=== PATIENT | male | born 1965 | race Caucasian/White ===

== ENCOUNTER 2018-02-08 13:02 | Observation (INO) | payer MEDICAID, SELFPAY ==
[2018-02-08 13:11] VITALS: BP 132/77; PULSE 83; RESP 16; TEMP 36.9; O2SAT 95
[2018-02-08] MEDS: Diazepam 5 MG TAB ×2 (13:31→20:18)
[2018-02-08] MEDS: oxyCODONE 5 MG TAB 10 MG (13:31)
--- NOTE | 2018-02-08 13:33 | DI.RAD_ITS ---
SYMPTOMS/DIAGNOSIS: S/P FALL AND HIT LADDER PA AND LATERAL CHEST AND RIGHT RIBS: Rib films show multiple right rib fractures, please see accompanying CT report, which showed fractures of ribs III-X. No gross pneumothorax identified radiographically, although a tiny hemopneumothorax was identified on CT. No significant additional findings.
--- NOTE | 2018-02-08 13:34 | W.ED.GENAD ---
Discharge Plan Disposition Patient Disposition: [facility] INPATIENT Condition: Stable Discharge Details Chief Complaint: Nk/Back Pain Clinical Impression: Multiple fractures of ribs of right side, Pneumothorax on right, Right pulmonary contusion Reason For Visit: MULTIPLE RIB FRACTURES, SMALL PNEUMOTHORAX, PULMON Admit Date/Time: 02/08/18 17:57 Admit Provider: Maine Pardo Attending Provider: Maine Pardo Primary Care Provider: Farhana Madden ED Provider: Jeanette Fleming Discharge Data Discharge Date/Time-TO BE ENTERED AT DEPARTURE: 02/08/18 18:23 Medical Decision Making 52yo M w/ R sided back pain after slip while working on a roof at home. Initially denied any blunt injury after asked multiple times but then after repeated questioning due to appearance of significant pain, he admitted to hitting his R back on a ladder. Denies head injury, LOC. Vital signs within normal limits. Pt appears very uncomfortable. Tenderness to palpation R side of back from upper to lower mid posterolateral back. No evidence of trauma. No midline C/T/L spine tenderness. Breath sounds equal and clear. Abdomen soft and nontender. No focal deficits. 1515 -- R ribs xray notes displaced fourth fifth sixth seventh eighth and ninth rib fractures. Report noted displaced left second and third rib fractures but this was a typo per vrad and the fractures were all on the right. Will send for CT chest w/o for further eval. 1600 --CT chest notes nondisplaced third, fifth, eighth, ninth, 10th and nondisplaced 6 and seventh rib fractures. Very small pneumothorax as well as mild opacities right lower lobe consistent with likely contusion. 1615 -- D/w [facility] trauma Dr. Contreras - accepts pt for transfer to ED. 1630 -- Pt does not want to go to [facility] - is concerned about cost of ambulance. D/w care management and they states medicaid would likely cover cost. Pt would prefer admission here if possible. 1645 -- D/w Dr. Pardo - accepts for admission here if CT chest/abd/pelvis with IV contrast negative for acute vascular/abdominal injury. 1730 --CT chest abdomen pelvis negative for any other acute injury other than multiple rib fractures noted. Dr. Pardo notified of findings and accepts patient for admission. EKG notes a rate of 99, sinus, no acute ST elevation or depression, QTc 441, QRS 100. Patient denied a history of diabetes. Labs reviewed and note a glucose of 276, white blood cell count 15, magnesium 1.7. Troponin negative. HPI General Mode of arrival: ambulatory. Date/Time Provider Initiated Documentation: 02/08/18 13:20. Limitations to Documentation: no limitations. Information obtained by: patient. HPI Narrative: Patient is a 52-year-old male who presents with right-sided back pain after slipped while working on a roof. Patient states he did not hit anything directly with his back and that he just slipped. Patient denies head injury, neck pain, chest pain or abdominal pain. Patient states he was able to walk down off of the roof and get into the car to come here. He denies shortness of breath. He took ibuprofen prior to arrival without relief. Past medical history: None Surgical history: Thumb surgery Social history: Occasional alcohol, denies tobacco or drugs Medications: None Allergies: None PCP: [facility] Related Data Home Medications Medication Instructions Recorded Confirmed epinephrine 0.3 mg IM ONCE #1 pen 03/26/17 02/08/18 sildenafil [Viagra] 25 mg PO DAILY #30 tab-cap 03/26/17 02/08/18 Previous Rx's Medication Instructions Recorded epinephrine 0.3 mg IM ONCE #1 pen 03/26/17 sildenafil [Viagra] 25 mg PO DAILY #30 tab-cap 03/26/17 Allergies Allergy/AdvReac Type Severity Reaction Status Date / Time venom-honey bee Allergy Intermediate Unverified 02/08/18 13:13 General Stated Complaint: Nk/Back Pain DORON: 3 Review of Systems Review of Systems All systems reviewed & are unremarkable except as noted in HPI and below PFSH Family History Mother Diabetes Heart disease Hyperlipidemia Father Neoplasm Brother No problems noted. Brother No problems noted. Brother No problems noted. Grandfather Heart disease Grandfather Heart disease Neoplasm Grandmother Heart disease Grandmother No problems noted. Daughter No problems noted. 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 pets and animals: No frequency: 1-2 times per week duration: 45-60 minutes/day Smoking/Tobacco Use Status: Never alcohol intake: current alcohol intake frequency: 0-2 drinks per day substance use type: does not use adalberto/anabaptist: Jehovah'S Witness special adalberto needs: No seatbelt use: always Surgical History Colonoscopy - IV Sedation (06/14/16) Exam Const General: cooperative, healthy appearing and uncomfortable Orientation: alert, awake and oriented x3 HENMT Head: normal to inspection Ears: hearing grossly normal bilaterally and external ears normal General nose exam: external nose normal Face and sinus: normal facial exam Mouth: oral mucosae normal Eyes General: appearance normal, both eyes and all related structures Eyelids: eyelids normal EOM: EOM intact bilaterally Neck Neck: normal visual inspection Chest Chest: normal inspection of the chest and tenderness (R lateral, no evidence of trauma ) Resp Effort & Inspection: normal respiratory effort and able to speak in complete sentences Auscultation: clear to auscultation bilaterally Cardio Rate: regular rate Rhythm: regular rhythm GI Inspection: normal to inspection Palpation: soft, not firm, no guarding, no hepatosplenomegaly, no masses and nontender Auscultation: normal bowel sounds Back/Spine/Pelvis Cervical Spine: cervical ROM normal, No cervical muscular tenderness and No cervical spinal tenderness Thoracic/Lumbar Spine: paraspinal tenderness, thoracic spinal tenderness and No lumbar spinal tenderness Skin General skin exam: no rashes or lesions noted Neuro General: alert and awake Cognition: normal cognition Speech: speech normal Gait: normal gait Motor: muscle tone normal throughout and strength 5/5 throughout Sensory Exam: no sensory deficits noted DTR's: Rt Patellar: 1+, Lt Patellar: 1+, Rt Ankle: 1+ and Lt Ankle: 1+ Plantar Reflexes: Equivocal: bilateral Extrem General: normal to inspection, full ROM and normal capillary refill Psych Appearance: grossly normal Mental Status: mental status grossly normal Speech and Movement: speech and movement normal Affect: normal affect Thought Process: normal Course Vital Signs Temperature 98.4 F 02/08/18 13:11 Pulse 83 02/08/18 13:11 Respiratory Rate 16 02/08/18 13:11 Blood Pressure 132/77 02/08/18 13:11 Pulse Oximetry 95 02/08/18 13:11 Temperature 98.4 F 02/08/18 13:11 Temperature Source Temporal Artery Scan 02/08/18 13:11 Pulse 83 02/08/18 13:11 Respiratory Rate 16 02/08/18 13:11 Respiratory Effort Non-Labored 02/08/18 13:13 Blood Pressure 132/77 02/08/18 13:11 Blood Pressure Position Sitting 02/08/18 13:11 Pulse Oximetry 95 02/08/18 13:11 Oxygen Delivery Method Room Air 02/08/18 13:11 Oxygen Flow Rate 0 02/08/18 13:11 Pain Level 10 02/08/18 13:31
[2018-02-08] MEDS: HYDROmorphone 2 MG/ML VIAL 1 MG IM (15:00)
--- NOTE | 2018-02-08 15:13 | DI.VRAD_ITS ---
EXAM: XR Right Ribs, 2 Views EXAM DATE/TIME: 02/08/2018 1:34 PM CLINICAL HISTORY: 52 years old, male; Injury or trauma; Fall; Initial encounter; Blunt trauma (contusions or hematomas); Rib area; Injury details: Per PT: Fell off roof onto ladder; Patient HX: Pain posterior right ribs, close to tspine TECHNIQUE: XR Right ribs 2 views. COMPARISON: No relevant prior studies available. FINDINGS: Bones/joints: Displaced fourth and fifth and sixth rib fractures. Less displaced left second and third rib fractures. There may be displaced seventh and eighth and ninth rib fractures as well.. Soft tissues: Normal. IMPRESSION: Displaced fourth and fifth and sixth rib fractures. Less displaced left second and third rib fractures. There may be displaced seventh and eighth and ninth rib fractures as well.. EXAM: XR Chest, 2 Views EXAM DATE/TIME: 02/08/2018 1:34 PM CLINICAL HISTORY: 52 years old, male; Injury or trauma; Fall; Initial encounter; Blunt trauma (contusions or hematomas); Rib area; Injury details: Per PT: Fell off roof onto ladder; Patient HX: Pain posterior right ribs, close to tspine TECHNIQUE: XR of the chest, 2 views. COMPARISON: No relevant prior studies available. FINDINGS: Lungs: Opacities in the left base may represent contusion. Pleural space: Unremarkable. No pleural effusion. No pneumothorax. Heart/Mediastinum: Unremarkable. No cardiomegaly. Bones/joints: Degenerative changes in the thoracic spine. Midthoracic compression fractures of unknown age. Rib fractures as described above Degenerative changes in the thoracolumbar spine IMPRESSION: Opacities in the left base may represent contusion. Dictated and Authenticated by: Raúl Joseph MD. Ordering:DENIZ SAMPSON MD
--- NOTE | 2018-02-08 15:36 | DI.CT_ITS ---
SYMPTOMS/DIAGNOSIS: S/P FALL AND HIT LADDER, ASSESS MULTIPLE RIB FRACTURES CHEST CT: CT examination was performed without contrast administration. This limits evaluation of vascular structures. There is marked subcutaneous emphysema in the right posterolateral thoracic region associated with rib fractures III-X with multiple displaced fragments. No gross mediastinal hematoma seen. Small pulmonary contusion may be present in the right lower and posterior lung field. A tiny right-sided pneumothorax noted. Small right pleural effusion/ hemothorax noted. CONCLUSION: Right thoracic injury as described above. Multiple rib fractures with small pneumothorax and small hemothorax. CHEST, ABDOMEN AND PELVIS CT: Contrast enhanced CT examination of the chest, abdomen and pelvis was performed with an intravenous infusion of 100 cc of Omnipaque 350. Contrast enhanced chest CT again shows multiple right rib fractures as noted on the noncontrast examination including fractures of the 3rd through 10th ribs with small associated right pneumothorax and hemothorax. Tracheobronchial tree appears intact. No left-sided injury seen. Minimal right basilar contusion and/or atelectasis may be present. No vascular injury seen. No mediastinal hematoma. Note is made of hepatic steatosis. Liver otherwise unremarkable in appearance, as is the spleen. Gallbladder, bile ducts and pancreas appear normal. No evidence of acute renal or adrenal injury. No vascular injury identified on scanning of the abdomen or pelvis. No significant abdominal wall injury or hernia. No abdominal, pelvic or thoracic adenopathy. No bowel injury or obstruction. CONCLUSION: Previously described multiple right rib fractures with small associated hemopneumothorax again noted. No additional findings.
--- NOTE | 2018-02-08 16:17 | DI.VRAD_ITS ---
EXAM: CT Chest Without Intravenous Contrast EXAM DATE/TIME: 02/08/2018 3:37 PM CLINICAL HISTORY: 52 years old, male; Injury or trauma; Fall; Initial encounter; Blunt trauma (contusions or hematomas); Injury details: Fell from roof onto ladder TECHNIQUE: Axial computed tomography images of the chest without intravenous contrast. Coronal and sagittal reformatted images were created and reviewed. COMPARISON: CR XR ribs RT w PA lat chest 02/08/2018 2:27 PM FINDINGS: Lungs: Mild opacities in the right lower lobe may represent atelectasis or contusion.. Pleural space: Very small pneumothorax anteriorly on the right 12 mm in width. Small pleural effusion.. Heart: Normal. No cardiomegaly. No pericardial effusion. Aorta: Normal. No aortic aneurysm. Lymph nodes: Unremarkable. No enlarged lymph nodes. Bones/joints: Right rib fractures: Displaced third, displaced fifth, nondisplaced sixth, essentially nondisplaced seventh, displaced 8, displaced ninth, and minimally displaced 10th. Soft tissues: Subcutaneous emphysema in the soft tissues posterior to the displaced 8 and ninth rib fractures. IMPRESSION: 1. Right rib fractures: Displaced third, displaced fifth, nondisplaced sixth, essentially nondisplaced seventh, displaced 8, displaced ninth, and minimally displaced 10th. 2. Very small pneumothorax anteriorly on the right 12 mm in width. 3. Small pleural effusion.. 4. Mild opacities in the right lower lobe may represent atelectasis or contusion.. Dictated and Authenticated by: Raúl Joseph MD. Ordering:DENIZ SAMPSON MD
[2018-02-08] MEDS: HYDROmorphone 2 MG/ML VIAL 1 MG IVP (16:46)
[2018-02-08] MEDS: Omnipaque 350 MG/ML 100 ML BTL IJ (17:13)
[2018-02-08] MEDS: Omnipaque 350 MG/ML 50 ML BTL IJ (17:14)
[2018-02-08 17:16] LABS: Abs Immature Grans 0.05 k/cumm (0.0-0.09); Absolute Basophil Count 0.02 k/cumm (0.0-0.2); Absolute Eosinophil Count 0.02 k/cumm (0.0-0.7); Absolute Lymphocyte Count 0.74 k/cumm (1.2-3.4); Absolute Monocyte Count 1.03 k/cumm (0.11-0.7); Absolute Neutrophil Count 13.58 k/cumm (1.2-6.7); Basophils % 0.1; Eosinophils % 0.1; HCT 43.7 % (40.0-50.0); HGB 15.1 g/dL (13.5-17.5); Immature Grans % 0.3; Lymphocytes % 4.8; Mean Corp. HGB Concentration 34.6 g/dL (32.0-36.0); Mean Corpuscular Hemoglobin 32.2 pg (27.0-33.0); Mean Corpuscular Volume 93.2 fL (80-95); Mean Platelet Volume 10.3 fL (8.0-11.0); Monocytes % 6.7; Platelet Count 153 x1000/uL (130-400); RBC 4.69 m/cumm (4.50-6.00); RBC Distribution Width 12.7 % (11.8-14.1); White Blood Cell Count 15.43 k/cumm (4.4-10.8)
--- NOTE | 2018-02-08 17:32 | DI.VRAD_ITS ---
EXAM: CT Chest With Intravenous Contrast EXAM DATE/TIME: 02/08/2018 4:51 PM CLINICAL HISTORY: 52 years old, male; Injury or trauma; Fall; Initial encounter; Blunt; Generalized; Blunt trauma (contusions or hematomas); Injury details: S/P fall from roof on to ladder; Additional info: R/O acute fracture/intra-abdominal injury TECHNIQUE: Axial computed tomography images of the chest with intravenous contrast. Coronal and sagittal reformatted images were created and reviewed. COMPARISON: No relevant prior studies available. FINDINGS: Lungs: Mild opacities in the right lower lobe may represent atelectasis or contusion. Pleural space: Very small pneumothorax anteriorly on the right 12 mm in width. Small pleural effusion.. Heart: Coronary artery calcifications may indicate coronary artery disease Aorta: Normal. No aortic aneurysm. Lymph nodes: Unremarkable. No enlarged lymph nodes. Bones/joints: Right rib fractures: Displaced third, displaced fifth, nondisplaced sixth, essentially nondisplaced seventh, displaced 8, displaced ninth, and minimally displaced 10th. Soft tissues: Subcutaneous emphysema in the soft tissues posterior to the displaced 8 and ninth rib fractures. IMPRESSION: 1. Mild opacities in the right lower lobe may represent atelectasis or contusion. . 2. Very small pneumothorax anteriorly on the right 12 mm in width. 3. Right rib fractures: Displaced third, displaced fifth, nondisplaced sixth, essentially nondisplaced seventh, displaced 8, displaced ninth, and minimally displaced 10th. 4. Subcutaneous emphysema in the soft tissues posterior to the displaced 8 and ninth rib fractures. EXAM: CT Abdomen and Pelvis With Intravenous Contrast EXAM DATE/TIME: 02/08/2018 4:51 PM CLINICAL HISTORY: 52 years old, male; Injury or trauma; Fall; Initial encounter; Blunt; Generalized; Blunt trauma (contusions or hematomas); Injury details: S/P fall from roof on to ladder; Additional info: R/O acute fracture/intra-abdominal injury TECHNIQUE: Axial computed tomography images of the abdomen and pelvis with intravenous contrast. Coronal and sagittal reformatted images were created and reviewed. COMPARISON: No relevant prior studies available. FINDINGS: Lower thorax: See report for CT chest ABDOMEN: Liver: Normal. No mass. Gallbladder and bile ducts: Normal. No calcified stones. No ductal dilation. Pancreas: Normal. No ductal dilation. Spleen: Normal. No splenomegaly. Adrenals: Normal. No mass. Kidneys and ureters: Normal. No hydronephrosis. Stomach and bowel: Normal. No obstruction. No mucosal thickening. Appendix: Normal appendix PELVIS: Bladder: Unremarkable as visualized. Reproductive: Unremarkable as visualized. ABDOMEN and PELVIS: Intraperitoneal space: Normal. No free air. No significant fluid collection. Bones/joints: No acute fracture. No dislocation. Soft tissues: Unremarkable. Vasculature: Normal. No abdominal aortic aneurysm. Lymph nodes: Normal. No enlarged lymph nodes. IMPRESSION: No evidence of acute trauma THIS REPORT CONTAINS FINDINGS THAT MAY BE CRITICAL TO PATIENT CARE. The findings were verbally communicated via telephone conference with kehinde carrasco at 5:31 PM EDT on 02/08/2018. The findings were acknowledged and understood. Dictated and Authenticated by: Raúl Joseph MD. Ordering:DENIZ SAMPSON MD
[2018-02-08 17:41] LABS: ALT 70 U/L (12-78); AST 68 U/L (15-37); Albumin 3.7 g/dL (3.4-5.0); Alkaline Phosphatase 74 U/L (46-116); Anion Gap 12.1 mmol/L (3-11); BUN 18 mg/dL (7-18); Bilirubin, Direct 0.05 mg/dL (0.00-0.20); Bilirubin, Total 0.3 mg/dL (0.2-1.0); CO2 23.9 mmol/L (21.0-32.0); CREATININE 1.14 mg/dL (0.70-1.30); Calcium 8.7 mg/dL (8.5-10.1); Chloride 103 mmol/L (98-107); Glucose 276 mg/dL (70-100); Magnesium 1.7 mg/dL (1.8-2.4); Potassium 4.3 mmol/L (3.5-5.1); Sodium 139 mmol/L (136-145); Total Protein 6.9 g/dL (6.4-8.2); Troponin I < 0.02 ng/mL (0.00-0.06)
[2018-02-08] MEDS: Ketorolac 30 MG/ML VIAL IVP ×2 (18:16→22:03)
[2018-02-08 18:26] VITALS: BP 119/75; PULSE 88; RESP 20; TEMP 36.1; O2SAT 96
[2018-02-08] MEDS: HYDROmorphone 2 MG/ML VIAL IVP (20:17)
[2018-02-08] MEDS: Acetaminophen 500 MG TAB 1000 MG PO (20:18)
[2018-02-08] MEDS: Cyclobenzaprine 10 MG TAB PO (20:18)
[2018-02-08] MEDS: MAGNESIUM SULFATE 2 GM/50 ML BAG IVPB (20:19)
[2018-02-08 22:38] LABS: Bilirubin Negative (Negative); Blood Negative (Negative); Clarity Clear; Glucose >=1000 mg/dL (Negative); Ketones Trace mg/dL (Negative); Leukocyte Esterase Negative (Negative); Nitrite Negative (Negative); Urobilinogen 0.2 EU/dL (Up TO 0.2); pH 5.5 (5-8)
[2018-02-08] MEDS: Normal Saline Flush 10 ML SYR IVP (23:44)
[2018-02-08 23:47] VITALS: BP 115/70; PULSE 57; RESP 18; TEMP 36.8; O2SAT 98
[2018-02-09] MEDS: Ketorolac 30 MG/ML VIAL IVP ×4 (04:20→22:30)
[2018-02-09] MEDS: HYDROmorphone 2 MG/ML VIAL IVP ×2 (04:35→07:26)
--- NOTE | 2018-02-09 07:00 | DI.RAD_ITS ---
SYMPTOM/DIAGNOSIS: F/U PNEUMOTHORAX PA AND LATERAL CHEST: Multiple right rib fractures are again noted. Tiny right apical pneumothorax noted. Some volume loss noted in the right lung. The findings suggest slightly increased atelectasis in comparison with yesterday's chest film.
--- NOTE | 2018-02-09 07:15 | HPE_ITS ---
Date of service: 02/09/18 Time of Service: 06:45 Assessment and Plan (1) Ribs, multiple fractures: Current visit: Yes Status: Acute Multiple rib fractures after an 8 feet fall from a roof. Doing reasonably well overnight. Pain is reasonable. Discussed diagnoses and risk of pneumonia P\\ Start Oxycodon for pain Regular diet Ambulate TID (2) Pneumothorax on right: Current visit: Yes Status: Acute A\\ Small pneumothorax on CT scan CXR pending this morning P\\ Await results of CXR History of Present Illness Chief Complaint: Rib Fractures Narrative: Mr. Perry is a pleasant 52 year old male who was working on a roof yesterday and lost his footing falling about 8 feet. He denies LOC and states he thinks he hit his right chest/back on a ladder as he fell. He came to the ER thinking he had just pulled some back muscles. CT of [facility], ABDO/Pelvis was positive only for 6 rib fractures on the right. 3 of the rib fractures are displaced and 3 are not. He also had a very small pneumothorax on the right and pulmonary contusions. He is a diabetic but states he is diet controlled at this time. Review of Systems Constitutional Reports system reviewed and no additional complaints, except as docu Eyes Reports system reviewed and no additional complaints, except as docu Cardiovascular Denies chest pain at rest, Denies chest pain with activity, Denies rapid heart rate and Denies irregular heart rhythm Respiratory Reports as per HPI Gastrointestinal Reports system reviewed and no additional complaints, except as docu Genitourinary Reports system reviewed and no additional complaints, except as docu Endocrine Reports system reviewed and no additional complaints, except as docu Hematologic/Lymphatic Denies easy bleeding, Denies easy bruising and Denies lymphadenopathy [facility] Family History Mother Diabetes Heart disease Hyperlipidemia Father Neoplasm Brother No problems noted. Brother No problems noted. Brother No problems noted. Grandfather Heart disease Grandfather Heart disease Neoplasm Grandmother Heart disease Grandmother No problems noted. Daughter No problems noted. 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 pets and animals: No frequency: 1-2 times per week duration: 45-60 minutes/day Smoking/Tobacco Use Status: Never alcohol intake: current alcohol intake frequency: 0-2 drinks per day substance use type: does not use adalberto/christianity: Pentecostalism special adalberto needs: No seatbelt use: always Surgical History Colonoscopy - IV Sedation (06/14/16) Meds Home Medications Medication Instructions Recorded Confirmed Type epinephrine 0.3 mg IM ONCE #1 pen 03/26/17 02/08/18 Rx sildenafil [Viagra] 25 mg PO DAILY #30 tab-cap 03/26/17 02/08/18 Rx Allergies Allergy/AdvReac Type Severity Reaction Status Date / Time venom-honey bee Allergy Intermediate Unverified 02/08/18 13:13 Exam Const General: cooperative, comfortable and no acute distress HENMT Head: normal to inspection, normocephalic and atraumatic Resp Effort & Inspection: normal respiratory effort Auscultation: clear to auscultation bilaterally Cardio Rate: regular rate Rhythm: regular rhythm Heart Sounds: no gallops, no murmurs and no rubs GI Palpation: soft, hepatosplenomegaly present and nontender Auscultation: normal bowel sounds Results Labs : 02/08/18 17:00 02/08/18 17:00 Laboratory Results - last 24 hr 02/08/18 02/08/18 02/08/18 17:00 17:00 20:50 WBC 15.43 H RBC 4.69 Hgb 15.1 Hct 43.7 MCV 93.2 MCH 32.2 MCHC 34.6 RDW 12.7 Plt Count 153 MPV 10.3 Immature Gran % 0.3 Neutrophils % 88.0 Lymphocytes % 4.8 Monocytes % 6.7 Eosinophils % 0.1 Basophils % 0.1 Absolute Neutrophils 13.58 H Absolute Lymphocytes 0.74 L Absolute Monocytes 1.03 H Absolute Eosinophils 0.02 Absolute Basophils 0.02 Sodium 139 Potassium 4.3 Chloride 103 Carbon Dioxide 23.9 Anion Gap 12.1 H BUN 18 Creatinine 1.14 Estimated GFR/1.73 m2 >= 60.00 Glucose 276 H Calcium 8.7 Magnesium 1.7 L Total Bilirubin 0.3 Conjugated Bilirubin 0.05 AST 68 H ALT 70 Alkaline Phosphatase 74 Troponin I < 0.02 Total Protein 6.9 Albumin 3.7 Urine Color Yellow Urine Clarity Clear Urine pH 5.5 Ur Specific Bassett 1.010 Urine Protein Negative Urine Ketones Trace H Urine Blood Negative Urine Nitrite Negative Urine Bilirubin Negative Urine Urobilinogen 0.2 Ur Leukocyte Esterase Negative Urine Glucose >=1000 H Last Vital Signs Temp 98.2 F 02/08/18 23:47 Pulse 57 L 02/08/18 23:47 Resp 18 02/08/18 23:47 BP 115/70 02/08/18 23:47 Pulse Ox 98 02/08/18 23:47
[2018-02-09 07:26] LABS: HCT 39.5 % (40.0-50.0); HGB 13.3 g/dL (13.5-17.5); Mean Corp. HGB Concentration 33.7 g/dL (32.0-36.0); Mean Corpuscular Volume 95.2 fL (80-95); Mean Platelet Volume 9.6 fL (8.0-11.0); Platelet Count 153 x1000/uL (130-400); RBC 4.15 m/cumm (4.50-6.00); RBC Distribution Width 12.5 % (11.8-14.1); White Blood Cell Count 8.06 k/cumm (4.4-10.8)
[2018-02-09] MEDS: Cyclobenzaprine 10 MG TAB PO ×3 (07:27→19:31)
[2018-02-09] MEDS: Normal Saline Flush 10 ML SYR IVP ×4 (07:27→22:30)
[2018-02-09 07:34] LABS: BUN 21 mg/dL (7-18); CREATININE 1.05 mg/dL (0.70-1.30); Chloride 102 mmol/L (98-107); Glucose 181 mg/dL (70-100); Magnesium 2.3 mg/dL (1.8-2.4); Sodium 136 mmol/L (136-145)
[2018-02-09 08:57] LABS: Hemoglobin A1C 9.5 % (4.5-6.2)
[2018-02-09 09:37] VITALS: BP 109/65; PULSE 68; RESP 21; TEMP 35.5; O2SAT 95
[2018-02-09] MEDS: oxyCODONE 5 MG TAB PO ×2 (12:29→20:01)
--- NOTE | 2018-02-09 13:18 | PDOC.CMIN ---
- If Service Date Differs Date of service: 02/09/18 Time of Service: 13:18 Care Management Initial Assess REASON FOR HOSPITALIZATION:: Multiple rib fractures, Pneumothorax on (R) PAST MEDICAL HISTORY/PAST SURGICAL HISTORY:: H/O thumb surgery, Tubular adenoma of colon, Shoulder pain, Obseity, Knee pain, Diabetes type 2, Carpal tunnel syndrome PREVIOUS FUNCTIONAL STATUS/SOCIAL/FAMILY SUPPORTS:: Bill resides with his Janeen and daughter in [place]. 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 Bill drives and manages AD[employer]'s CURRENT FUNCTIONAL STATUS:: Currently Bill is sitting up in the recliner in his room, his Janeen is present. ADVANCE DIRECTIVES:: None on file Has patient been provided with information about the portal?: Yes Did the patient sign up for the portal?: No CODE STATUS:: Full Code INSURANCE COVERAGE / FINANCIAL ISSUES:: Medicaid CURRENT HOME/COMMUNITY SERVICES/EQUIPMENT:: Currently bill has no services or medical equipment in the community. PRIMARY CARE PHYSICIAN:: Farhana huynh POTENTIAL DISCHARGE NEEDS:: F/U appointment with dr. Pardo PATIENT/FAMILY EDUCATION NEEDS:: Review DC instructions, any limitations, and ongoing DC planning discussion. Discuss Ask Me Three ANTICIPATED BARRIERS TO DISCHARGE:: None identified at this time. TRANSPORTATION:: Via private vehicle with Janeen PLAN:: Bill will return home once medically cleared with no anticipated services. He will F/U with PCP and plan of care as prescribed. Bill's family to transport when ready.
--- NOTE | 2018-02-09 13:39 | INITIAL_ITS ---
- If Service Date Differs Date of service: 02/09/18 Time of Service: 13:18 Care Management Initial Assess REASON FOR HOSPITALIZATION:: Multiple rib fractures, Pneumothorax on (R) PAST MEDICAL HISTORY/PAST SURGICAL HISTORY:: H/O thumb surgery, Tubular adenoma of colon, Shoulder pain, Obseity, Knee pain, Diabetes type 2, Carpal tunnel syndrome PREVIOUS FUNCTIONAL STATUS/SOCIAL/FAMILY SUPPORTS:: Bill resides with his Janeen and daughter in [place]. 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 Bill drives and manages AD[employer]'s CURRENT FUNCTIONAL STATUS:: Currently Bill is sitting up in the recliner in his room, his Janeen is present. ADVANCE DIRECTIVES:: None on file Has patient been provided with information about the portal?: Yes Did the patient sign up for the portal?: No CODE STATUS:: Full Code INSURANCE COVERAGE / FINANCIAL ISSUES:: Medicaid CURRENT HOME/COMMUNITY SERVICES/EQUIPMENT:: Currently bill has no services or medical equipment in the community. PRIMARY CARE PHYSICIAN:: Farhana huynh POTENTIAL DISCHARGE NEEDS:: F/U appointment with dr. Pardo PATIENT/FAMILY EDUCATION NEEDS:: Review DC instructions, any limitations, and ongoing DC planning discussion. Discuss Ask Me Three ANTICIPATED BARRIERS TO DISCHARGE:: None identified at this time. TRANSPORTATION:: Via private vehicle with Janeen PLAN:: Bill will return home once medically cleared with no anticipated services. He will F/U with PCP and plan of care as prescribed. Bill's family to transport when ready.
[2018-02-09 13:50] VITALS: BP 126/70; PULSE 73; RESP 20; TEMP 36.8; O2SAT 97
--- NOTE | 2018-02-09 15:14 | W.PM.PROGNOT ---
Assessment and Plan (1) Ribs, multiple fractures: Current visit: Yes Status: Acute Multiple rib fractures after an 8 feet fall from a roof. Doing reasonably well overnight. Pain is reasonable. Discussed diagnoses and risk of pneumonia P\\ Continue Oxycodon Encouraged ISP use CXR in am if the same or better will D/C home (2) Pneumothorax on right: Current visit: Yes Status: Acute A\\ Small pneumothorax on CT scan CXR maybe slight increase in PTX P\\ encourage ISP CXR in am (3) Diabetes type 2, controlled: Current visit: Yes Status: Acute A\\ Per patient is diet Controlled. Hgb A1C is high at 9.5. Has not needed insulin at this time P\\ Will have patient follow up with his PCP and discuss his DM and HgbA1C Encourage DM diet Subjective Interval history since last seen: Doing OK. 5 mg of Oxycodon seems to be working for him. Has been up and walking No BM Exam Resp Effort & Inspection: normal respiratory effort Auscultation: clear to auscultation bilaterally and diminished lung sounds on the right in the lower lung bain Objective Objective Clinical Data: Abnormal lab results 02/08/18 02/08/18 02/08/18 Range/Units 17:00 17:00 20:50 WBC 15.43 H (4.4-10.8) k/cumm RBC (4.50-6.00) m/cumm Hgb (13.5-17.5) g/dL Hct (40.0-50.0) % MCV (80-95) fL Absolute Neutrophils 13.58 H (1.2-6.7) k/cumm Absolute Lymphocytes 0.74 L (1.2-3.4) k/cumm Absolute Monocytes 1.03 H (0.11-0.7) k/cumm Anion Gap 12.1 H (3-11) mmol/L BUN (7-18) mg/dL Glucose 276 H (70-100) mg/dL Hemoglobin A1c (4.5-6.2) % Calcium (8.5-10.1) mg/dL Magnesium 1.7 L (1.8-2.4) mg/dL AST 68 H (15-37) U/L Urine Ketones Trace H (Negative) mg/dL Urine Glucose >=1000 H (Negative) mg/dL 02/09/18 02/09/18 02/09/18 Range/Units 06:50 06:50 06:50 WBC (4.4-10.8) k/cumm RBC 4.15 L (4.50-6.00) m/cumm Hgb 13.3 L (13.5-17.5) g/dL Hct 39.5 L (40.0-50.0) % MCV 95.2 H (80-95) fL Absolute Neutrophils (1.2-6.7) k/cumm Absolute Lymphocytes (1.2-3.4) k/cumm Absolute Monocytes (0.11-0.7) k/cumm Anion Gap (3-11) mmol/L BUN 21 H (7-18) mg/dL Glucose 181 H D (70-100) mg/dL Hemoglobin A1c 9.5 H (4.5-6.2) % Calcium 8.0 L (8.5-10.1) mg/dL Magnesium (1.8-2.4) mg/dL AST (15-37) U/L Urine Ketones (Negative) mg/dL Urine Glucose (Negative) mg/dL Vital Signs Temperature 98.2 F 02/09/18 13:50 Temperature Source Tympanic 02/09/18 13:50 Pulse 73 02/09/18 13:50 Pulse Rhythm Regular 02/09/18 11:09 Respiratory Rate 20 02/09/18 13:50 Respiratory Effort Non-Labored 02/09/18 11:09 Respiratory Depth Normal 02/09/18 11:09 Respiratory Pattern Normal 02/09/18 11:09 Blood Pressure 126/70 02/09/18 13:50 Blood Pressure Position Sitting 02/08/18 13:11 Pulse Oximetry 97 02/09/18 13:50 Oxygen Delivery Method Room Air 02/09/18 13:50 Oxygen Flow Rate 0 02/09/18 13:50 Pain Level 5 02/09/18 12:29 Comment 02/08/18 18:26 Intake & Output 02/08/18 02/09/18 02/09/18 23:59 11:59 23:59 Intake Total 700 / 700 520 / 520 Output Total 650 / 650 350 / 350 Balance 50 / 50 170 / 170 Weight 259 lb 15.999 oz Intake: IV Oral 700 / 700 500 / 500 Output: Urine 650 / 650 350 / 350 Other: Urine Color Yellow Yellow [place] Urine Appearance Clear Clear Urine Odor Normal Normal Comment Sent for sample analysis Voiding Methods Toilet Toilet Laboratory Results WBC 8.06 k/cumm (4.4-10.8) D 02/09/18 06:50 RBC 4.15 m/cumm (4.50-6.00) L 02/09/18 06:50 Hgb 13.3 g/dL (13.5-17.5) L 02/09/18 06:50 Hct 39.5 % (40.0-50.0) L 02/09/18 06:50 MCV 95.2 fL (80-95) H 02/09/18 06:50 MCH 32.0 pg (27.0-33.0) 02/09/18 06:50 MCHC 33.7 g/dL (32.0-36.0) 02/09/18 06:50 RDW 12.5 % (11.8-14.1) 02/09/18 06:50 Plt Count 153 x1000/uL (130-400) 02/09/18 06:50 MPV 9.6 fL (8.0-11.0) 02/09/18 06:50 Immature Gran % 0.3 02/08/18 17:00 Neutrophils % 88.0 02/08/18 17:00 Lymphocytes % 4.8 02/08/18 17:00 Monocytes % 6.7 02/08/18 17:00 Eosinophils % 0.1 02/08/18 17:00 Basophils % 0.1 02/08/18 17:00 Absolute Neutrophils 13.58 k/cumm (1.2-6.7) H 02/08/18 17:00 Absolute Lymphocytes 0.74 k/cumm (1.2-3.4) L 02/08/18 17:00 Absolute Monocytes 1.03 k/cumm (0.11-0.7) H 02/08/18 17:00 Absolute Eosinophils 0.02 k/cumm (0.0-0.7) 02/08/18 17:00 Absolute Basophils 0.02 k/cumm (0.0-0.2) 02/08/18 17:00 Sodium 136 mmol/L (136-145) 02/09/18 06:50 Potassium 4.0 mmol/L (3.5-5.1) 02/09/18 06:50 Chloride 102 mmol/L (98-107) 02/09/18 06:50 Carbon Dioxide 26.0 mmol/L (21.0-32.0) 02/09/18 06:50 Anion Gap 8.0 mmol/L (3-11) 02/09/18 06:50 BUN 21 mg/dL (7-18) H 02/09/18 06:50 Creatinine 1.05 mg/dL (0.70-1.30) 02/09/18 06:50 Estimated GFR/1.73 m2 >= 60.00 (mL/min/1.73m2) 02/09/18 06:50 Glucose 181 mg/dL (70-100) H D 02/09/18 06:50 Hemoglobin A1c 9.5 % (4.5-6.2) H 02/09/18 06:50 Calcium 8.0 mg/dL (8.5-10.1) L 02/09/18 06:50 Magnesium 2.3 mg/dL (1.8-2.4) 02/09/18 06:50 Total Bilirubin 0.3 mg/dL (0.2-1.0) 02/08/18 17:00 Conjugated Bilirubin 0.05 mg/dL (0.00-0.20) 02/08/18 17:00 AST 68 U/L (15-37) H 02/08/18 17:00 ALT 70 U/L (12-78) 02/08/18 17:00 Alkaline Phosphatase 74 U/L (46-116) 02/08/18 17:00 Troponin I < 0.02 ng/mL (0.00-0.06) 02/08/18 17:00 Total Protein 6.9 g/dL (6.4-8.2) 02/08/18 17:00 Albumin 3.7 g/dL (3.4-5.0) 02/08/18 17:00 Urine Color Yellow (Yellow) 02/08/18 20:50 Urine Clarity Clear 02/08/18 20:50 Urine pH 5.5 (5-8) 02/08/18 20:50 Ur Specific [place] 1.010 (1.005-1.025) 02/08/18 20:50 Urine Protein Negative mg/dL (Negative) 02/08/18 20:50 Urine Ketones Trace mg/dL (Negative) H 02/08/18 20:50 Urine Blood Negative (Negative) 02/08/18 20:50 Urine Nitrite Negative (Negative) 02/08/18 20:50 Urine Bilirubin Negative (Negative) 02/08/18 20:50 Urine Urobilinogen 0.2 EU/dL (Up TO 0.2) 02/08/18 20:50 Ur Leukocyte Esterase Negative (Negative) 02/08/18 20:50 Urine Glucose >=1000 mg/dL (Negative) H 02/08/18 20:50
[2018-02-09 19:03] VITALS: BP 109/71; PULSE 64; RESP 20; TEMP 36.8; O2SAT 96
[2018-02-09 23:22] VITALS: BP 122/72; PULSE 76; RESP 18; TEMP 36.3; O2SAT 95
[2018-02-10 04:05] VITALS: BP 127/80; PULSE 68; RESP 14; TEMP 36.4; O2SAT 95
[2018-02-10] MEDS: Normal Saline Flush 10 ML SYR IVP ×3 (04:20→10:36)
[2018-02-10] MEDS: Ketorolac 30 MG/ML VIAL IVP ×2 (04:20→10:35)
--- NOTE | 2018-02-10 06:30 | DI.RAD_ITS ---
SYMPTOMS/DIAGNOSIS: F/U ON PNEUMOTHORAX, RIB FRACTURES, ATELECTASIS PA AND LATERAL CHEST: Right rib fractures and right pleural scarring are demonstrated with no appreciable interval change when compared with the prior examination. There is no definite pneumothorax. The left lung is clear. The heart is not enlarged. SUMMARY: Multiple right rib fractures and pleural scarring. No pneumothorax is identified on today's examination.
[2018-02-10 07:27] VITALS: BP 112/72; PULSE 66; RESP 17; TEMP 36.5; O2SAT 95
--- NOTE | 2018-02-10 07:44 | PGE_ITS ---
Assessment and Plan (1) Ribs, multiple fractures: Current visit: Yes Status: Acute Multiple rib fractures after an 8 feet fall from a roof. Doing reasonably well overnight. Pain currently being well managed. Ambulating several laps this morning Discussed diagnoses and risk of pneumonia. P\\ Continue Oxycodon Encouraged continued ISP use CXR results pending, if the same or better will D/C home (2) Pneumothorax on right: Current visit: Yes Status: Acute A\\ Pain is currently being well managed. Tolerating ambulation well. P\\ encourage ISP CXR results pending (3) Diabetes type 2, controlled: Current visit: Yes Status: Acute A\\ Per patient is diet Controlled. Hgb A1C is high at 9.5. Has not needed insulin at this time P\\ Will have patient follow up with his PCP and discuss his DM and HgbA1C Encourage DM diet Subjective Patient reports: pain is less; denies vomiting and fever Interval history since last seen: Mr. Perry reports that he has been ambulating in the hallway and that his pain is less today compared to yesterday. His last dosing of pain medication was around 0400 and he reports good effect with this. He denies any changes in character in his pain. Denies feeling SOB, wheezing or coughing. Exam Const General: cooperative, comfortable and no acute distress Orientation: alert and oriented x3 Resp Effort & Inspection: normal respiratory effort and other (Stiff, guarded position in sitting.) Auscultation: clear to auscultation bilaterally Cardio Rate: regular rate Rhythm: regular rhythm Heart Sounds: S1 normal, S2 normal, no gallops and no murmurs GI Auscultation: normal bowel sounds Objective Objective Clinical Data: Abnormal lab results 02/09/18 Range/Units 06:50 Hemoglobin A1c 9.5 H (4.5-6.2) % Vital Signs Temperature 36.4 C L 02/10/18 04:05 Temperature Source Tympanic 02/10/18 04:05 Pulse 68 02/10/18 04:05 Pulse Rhythm Regular 02/10/18 00:00 Respiratory Rate 14 02/10/18 04:05 Respiratory Effort 02/10/18 00:00 Respiratory Depth Normal 02/10/18 00:00 Respiratory Pattern Normal 02/10/18 00:00 Blood Pressure 127/80 02/10/18 04:05 Blood Pressure Position Sitting 02/08/18 13:11 Pulse Oximetry 95 02/10/18 04:05 Oxygen Delivery Method Room Air 02/10/18 04:05 Oxygen Flow Rate 0 02/10/18 04:05 Pain Level 4 02/10/18 04:20 Comment 02/08/18 18:26 Intake & Output 02/09/18 02/09/18 02/10/18 11:59 23:59 11:59 Intake Total 520 / 520 480 / 480 Output Total 350 / 350 250 / 250 Balance 170 / 170 480 / 480 -250 / -250 Intake: IV 20 Oral 500 / 500 480 / 480 Output: Urine 350 / 350 250 / 250 Other: Urine Color Yellow Yellow Dark Noreen [place] Urine Appearance Clear Clear Clear Urine Odor Normal Normal Comment patient voided independently in the bathroom SOME TOILET PAPER IN URINE IN HAT IN TOILET. FOUND SOME PINK STAINED ON BOTTOM OF HAT. CLEANED HAT AND WILL RECHECK URINE. Voiding Methods Toilet Toilet Laboratory Results WBC 8.06 k/cumm (4.4-10.8) D 02/09/18 06:50 RBC 4.15 m/cumm (4.50-6.00) L 02/09/18 06:50 Hgb 13.3 g/dL (13.5-17.5) L 02/09/18 06:50 Hct 39.5 % (40.0-50.0) L 02/09/18 06:50 MCV 95.2 fL (80-95) H 02/09/18 06:50 MCH 32.0 pg (27.0-33.0) 02/09/18 06:50 MCHC 33.7 g/dL (32.0-36.0) 02/09/18 06:50 RDW 12.5 % (11.8-14.1) 02/09/18 06:50 Plt Count 153 x1000/uL (130-400) 02/09/18 06:50 MPV 9.6 fL (8.0-11.0) 02/09/18 06:50 Immature Gran % 0.3 02/08/18 17:00 Neutrophils % 88.0 02/08/18 17:00 Lymphocytes % 4.8 02/08/18 17:00 Monocytes % 6.7 02/08/18 17:00 Eosinophils % 0.1 02/08/18 17:00 Basophils % 0.1 02/08/18 17:00 Absolute Neutrophils 13.58 k/cumm (1.2-6.7) H 02/08/18 17:00 Absolute Lymphocytes 0.74 k/cumm (1.2-3.4) L 02/08/18 17:00 Absolute Monocytes 1.03 k/cumm (0.11-0.7) H 02/08/18 17:00 Absolute Eosinophils 0.02 k/cumm (0.0-0.7) 02/08/18 17:00 Absolute Basophils 0.02 k/cumm (0.0-0.2) 02/08/18 17:00 Sodium 136 mmol/L (136-145) 02/09/18 06:50 Potassium 4.0 mmol/L (3.5-5.1) 02/09/18 06:50 Chloride 102 mmol/L (98-107) 02/09/18 06:50 Carbon Dioxide 26.0 mmol/L (21.0-32.0) 02/09/18 06:50 Anion Gap 8.0 mmol/L (3-11) 02/09/18 06:50 BUN 21 mg/dL (7-18) H 02/09/18 06:50 Creatinine 1.05 mg/dL (0.70-1.30) 02/09/18 06:50 Estimated GFR/1.73 m2 >= 60.00 (mL/min/1.73m2) 02/09/18 06:50 Glucose 181 mg/dL (70-100) H D 02/09/18 06:50 Hemoglobin A1c 9.5 % (4.5-6.2) H 02/09/18 06:50 Calcium 8.0 mg/dL (8.5-10.1) L 02/09/18 06:50 Magnesium 2.3 mg/dL (1.8-2.4) 02/09/18 06:50 Total Bilirubin 0.3 mg/dL (0.2-1.0) 02/08/18 17:00 Conjugated Bilirubin 0.05 mg/dL (0.00-0.20) 02/08/18 17:00 AST 68 U/L (15-37) H 02/08/18 17:00 ALT 70 U/L (12-78) 02/08/18 17:00 Alkaline Phosphatase 74 U/L (46-116) 02/08/18 17:00 Troponin I < 0.02 ng/mL (0.00-0.06) 02/08/18 17:00 Total Protein 6.9 g/dL (6.4-8.2) 02/08/18 17:00 Albumin 3.7 g/dL (3.4-5.0) 02/08/18 17:00 Urine Color Yellow (Yellow) 02/08/18 20:50 Urine Clarity Clear 02/08/18 20:50 Urine pH 5.5 (5-8) 02/08/18 20:50 Ur Specific [place] 1.010 (1.005-1.025) 02/08/18 20:50 Urine Protein Negative mg/dL (Negative) 02/08/18 20:50 Urine Ketones Trace mg/dL (Negative) H 02/08/18 20:50 Urine Blood Negative (Negative) 02/08/18 20:50 Urine Nitrite Negative (Negative) 02/08/18 20:50 Urine Bilirubin Negative (Negative) 02/08/18 20:50 Urine Urobilinogen 0.2 EU/dL (Up TO 0.2) 02/08/18 20:50 Ur Leukocyte Esterase Negative (Negative) 02/08/18 20:50 Urine Glucose >=1000 mg/dL (Negative) H 02/08/18 20:50
[2018-02-10] MEDS: Cyclobenzaprine 10 MG TAB PO (07:45)
--- NOTE | 2018-02-10 08:06 | CMPROGNOTE_ITS ---
Care Management Progress Note S/O: A: 52 year old male admitted to [facility] 02/08/18 P: Bill will return home once medically cleared with no anticipated services. He will F/U with PCP and plan of care as prescribed. Bill's family to transport when ready.
--- NOTE | 2018-02-10 11:45 | W.PM.DS.N ---
Date of service: 02/10/18 Time of Service: 11:45 DS: Diagnosis Discharge Diagnosis (1) Ribs, multiple fractures: Status: Acute (2) Pneumothorax on right: Status: Acute (3) Diabetes type 2, controlled: Status: Acute Discharge Plan Disposition Patient Disposition: HOME Condition: Stable Discharge Details Reason For Visit: MULTIPLE RIB FRACTURES, SMALL PNEUMOTHORAX Admit Date/Time: 02/08/18 17:57 Admit Provider: Maine Pardo Attending Provider: Maine Pardo Primary Care Provider: Farhana Madden [facility] Course Hospital Course: Mr. Perry is a pleasant 52 year old male that was admitted on 02/08 at 6 pm fpr multiple right sided rib fractures, pulmonary contusion and small pneumothorax. He was admitted for pain control. He was started on a regular diet on 02/09. His CXR showed a small pneumothorax and increased atelectasis. Patient was counseled on walking and using his ICP. CXR on 02/10 showed no pneumothorax and atelectasis was improved. He was not requiring Oxygen and his pain was controlled on Tylenol, ibuprofen and flexeril with the occasional Oxycodon. While here his HgbA1C was checked as his BS were high. It increased to 9.5. He has an appointment with his PCP next week. Home Meds and New Rx's Prescriptions: New acetaminophen [Mapap Extra Strength] 500 mg Tablet 1,000 mg PO Q6H PRN PRN (Reason: pain) Qty: 30 RF: 0 cyclobenzaprine 10 mg Tablet 10 mg PO TID Qty: 90 RF: 0 oxycodone 5 mg Tablet 5 mg PO Q6H PRN PRN (Reason: pain) Qty: 20 RF: 0 ibuprofen 600 mg tablet 600 mg PO QID PRN (Reason: pain) Qty: 30 RF: 1 polyethylene glycol 3350 [Miralax] 17 gram/dose powder 17 gm PO DAILY PRN (Reason: constipation) Qty: 119 RF: 0 Continue epinephrine 0.3 MG/0.3 ML auto-injector 0.3 mg IM ONCE Qty: 1 RF: 1 sildenafil [Viagra] 25 MG tablet 25 mg PO DAILY Qty: 30 RF: 0 Discharge Instructions Instructions: Traumatic Pneumothorax (DC), Rib Fracture (DC), Pulmonary Contusion (DC) Additional Instructions: Follow up with Dr. Pardo as needed. Office #- [phone] Follow up with your Primary care physician regrading your diabetes Call the office if you develop: fevers >101.5 Worsening pain Shortness of breath Activity: as tolerated. Would not recommend hockey this year. Do not fly in an air plane for 4 weeks Pain medications: Take tylenol and ibuprofen alternating as needed Take Oxycodon 1 tab every 6 hours as needed for severe pain Take flexeril 10 mg 3 x a day for 1-2 weeks and then try to take it as needed Take Miralax as needed for constipation Other: use ice, alternating with heat as needed for pain 1. If you are unable to contact your doctor with a problem, contact the hospital at [phone]. 2. Continue all your regular medications unless directed otherwise. 3. You are being prescribed a Narcotic pain medication. Narcotic pain medications have an addiction potential for everyone. It is important that you take the medication as prescribed There is a limit on how many tablets we can prescribed, this has been decided by the state Please keep the medications in a secure place and do not let anyone know you have them at home If you have medication left over please discard them by crushing them in a little water and mixing in used coffee grounds or cat litter and putting in the trash. I understand the above instructions and have no questions. Signature of Patient or Responsible Adult Escort Date/Time Name of Responsible Adult Escort Signature of Nurse Date/Time Referrals: Maine Pardo MD [[facility] STAFF PHYSICIAN] - (as needed) Farhana Madden MD [Primary Care Provider] - (1-2 weeks for Diabetes) Activity:: Activity as Tolerated Equipment/Supplies:: No Equipment Needed Diet:: As Tolerated Exam Resp Effort & Inspection: normal respiratory effort Auscultation: clear to auscultation bilaterally Cardio Rate: regular rate Rhythm: regular rhythm Heart Sounds: no gallops, no murmurs and no rubs DS: Data Vitals/I&O Vitals and I&O: Vital Signs Temperature 97.7 F 02/10/18 07:27 Temperature Source Tympanic 02/10/18 07:27 Pulse 66 02/10/18 07:27 Pulse Rhythm Regular 02/10/18 07:55 Respiratory Rate 17 02/10/18 07:27 Respiratory Effort 02/10/18 07:55 Respiratory Depth Normal 02/10/18 07:55 Respiratory Pattern Normal 02/10/18 07:55 Blood Pressure 112/72 02/10/18 07:27 Blood Pressure Position Sitting 02/08/18 13:11 Pulse Oximetry 95 02/10/18 07:27 Oxygen Delivery Method Room Air 02/10/18 07:27 Oxygen Flow Rate 0 02/10/18 07:27 Pain Level 5 02/10/18 10:35 Comment 02/08/18 18:26 Intake & Output 02/09/18 02/09/18 02/10/18 11:59 23:59 11:59 Intake Total 520 / 520 480 / 480 360 / 360 Output Total 350 / 350 250 / 250 Balance 170 / 170 480 / 480 110 / 110 Intake: IV 20 / 20 Oral 500 / 500 480 / 480 360 / 360 Output: Urine 350 / 350 250 / 250 Other: Urine Color Yellow Yellow Dark Noreen [place] Urine Appearance Clear Clear Clear Urine Odor Normal Normal Comment patient voided independently in the bathroom SOME TOILET PAPER IN URINE IN HAT IN TOILET. FOUND SOME PINK STAINED ON BOTTOM OF HAT. CLEANED HAT AND WILL RECHECK URINE. Voiding Methods Toilet Toilet
[2018-02-10 12:00] VITALS: BP 107/69; PULSE 73; RESP 18; TEMP 36.4; O2SAT 95
--- NOTE | 2018-02-10 15:01 | PDOC.CMDIS ---
LACE Index Scoring Tool - Questions: Length of Stay (in days): 3 Acuity (Admit via E.D.?): Yes Comorbidities: Diabetes w/o Complication, Any Tumor E.D. Visits: 1 - Answers: Total Score: 10 Risk of Readmission: High Risk Care Management Discharge Reason for Hospitalization: Multiple rib fractures, Pneumothorax on (R) Discharge Plan: Bill will return home when ready per MD; no additional services anticipated. He will follow up with his PCP and plan of care as prescribed. Bill's , Irma will transport via private vehicle. Patient/Family Education Needs: Review discharge instructions, discuss Ask Me Three.
--- NOTE | 2018-02-10 15:28 | DM INPTCON_ITS ---
DESCRIPTION/ASSESSMENT: Appreciate diabetes consult for Mr. Perry who is hospitalized for fractures in his vertebrae. He has been managing his diabetes with lifestyle and actually thought he only had pre-diabetes. A1c 9.5 BMI 38 Blood sugars this hospitalization 181-295 on sensitive insulin correction. INTERVENTION: Reviewed A1c for diagnostic criteria and glycemic goals. Briefly reviewed food guide focused on vegetables and protein; discouraged sugar sweetened beverages as a start. Introduction to lifestyle changes and importance and benefits of early intensive management. Described medication management potential and his PCP will be recommending this at his follow up visit next week. PLAN: He will follow up with his PCP; call with questions in the meantime. They have contact information if desired.
== END 2018-02-10 13:45 | disposition home or self-care (01) ==
LOC: ER 18:23 → MS 19:09
PROVIDERS: Admitting Provider Surgery; Emergency Provider Physician Assistant; PCP Internal Medicine; Visit Provider Surgery
DX: S22.41XA Multiple fractures of ribs, right side, initial encounter for closed fracture (principal); S27.0XXA Traumatic pneumothorax, initial encounter; S27.321A Contusion of lung, unilateral, initial encounter; E11.9 Type 2 diabetes mellitus without complications; J98.11 Atelectasis; W17.89XA Other fall from one level to another, initial encounter; W22.8XXA Striking against or struck by other objects, initial encounter
CPT/HCPCS: 36415; 71250; 74177; 80048; 80053; 80076; 85027; 93005; 96372; 96374; 96375; 99220; 99233; 99238; 99285; NC; 71046; 71100; 71260; 81003; 83036; 83735; 84484; 85025; 93010; G0378; J1885; J3490; Q9967

== ENCOUNTER 2018-02-18 11:07 | Outpatient (CLI) | payer MEDICAID, SELFPAY ==
--- NOTE | 2018-02-18 11:06 | DI.RAD_ITS ---
SYMPTOM/DIAGNOSIS: PNEUMOTHORAX, J93.9, MULTIPLE RIB FRACTURES, S22.49XA PA AND LATERAL CHEST: Comparison is made with 02/10/18. The heart size is at the upper limits of normal. There is a tiny right pleural effusion. Multiple right rib fractures are again noted. There is no evidence of pneumothorax. IMPRESSION: Multiple old right rib fractures. No evidence of pneumothorax.
[2018-02-18 11:31] LABS: HCT 39.4 % (40.0-50.0); HGB 13.4 g/dL (13.5-17.5); Mean Platelet Volume 8.5 fL (8.0-11.0); Platelet Count 196 x1000/uL (130-400); RBC 4.19 m/cumm (4.50-6.00); RBC Distribution Width 12.3 % (11.8-14.1)
[2018-02-18 12:30] LABS: ALT 40 U/L (12-78); AST 24 U/L (15-37); Albumin 3.6 g/dL (3.4-5.0); Alkaline Phosphatase 68 U/L (46-116); Anion Gap 8.9 mmol/L (3-11); BUN 14 mg/dL (7-18); Bilirubin, Total 0.4 mg/dL (0.2-1.0); CO2 29.1 mmol/L (21.0-32.0); CREATININE 0.93 mg/dL (0.70-1.30); Calcium 8.5 mg/dL (8.5-10.1); Chloride 102 mmol/L (98-107); Glucose 152 mg/dL (70-100); Potassium 4.3 mmol/L (3.5-5.1); Sodium 140 mmol/L (136-145); Total Protein 6.7 g/dL (6.4-8.2)
== END 2018-02-18 11:27 ==
PROVIDERS: PCP Internal Medicine; Visit Provider Internal Medicine
DX: J93.9 Pneumothorax, unspecified (principal); S22.41XD Multiple fractures of ribs, right side, subsequent encounter for fracture with routine healing; J90 Pleural effusion, not elsewhere classified; R60.9 Edema, unspecified
CPT/HCPCS: 36415; 80053; 85027; 71046

== ENCOUNTER 2018-02-23 00:44 | Outpatient (CLI) | payer MEDICAID, SELFPAY ==
--- NOTE | 2018-02-23 07:07 | DI.US_ITS ---
SYMPTOM/DIAGNOSIS: ABD TRAUMA, RIB FRACTURES, NEW ANEMIA, D4.9, J93.9, S22.49XA ABDOMEN ULTRASOUND: Routine examination. Comparison CT scan is 02/08/18. The aorta and IVC are unremarkable. There is diffuse increased echogenicity of the liver consistent with hepatic steatosis. No hepatic mass is seen. There are gallstones present. The gallbladder wall is within normal limits. No sludge or pericholecystic fluid is present. The common duct is within normal limits at .7 cm. The portions of the pancreatic head visualized and are unremarkable. The remainder of the pancreas cannot be seen due to overlying bowel. The spleen is mildly enlarged measuring 13.6 cm. but is otherwise unremarkable. The kidneys are unremarkable. Note is made of a right pleural effusion. IMPRESSION: 1. Mild splenomegaly. 2. Hepatic steatosis. 3. Cholelithiasis. No sonographic evidence to suggest acute cholecystitis. 4. Small right pleural effusion.
== END 2018-02-23 01:04 ==
PROVIDERS: PCP Internal Medicine; Visit Provider Internal Medicine
DX: R16.1 Splenomegaly, not elsewhere classified (principal); K76.0 Fatty (change of) liver, not elsewhere classified; K80.20 Calculus of gallbladder without cholecystitis without obstruction; J90 Pleural effusion, not elsewhere classified; D64.9 Anemia, unspecified; J93.9 Pneumothorax, unspecified; S22.49XA Multiple fractures of ribs, unspecified side, initial encounter for closed fracture
CPT/HCPCS: 76700

== ENCOUNTER 2018-03-11 10:04 | Outpatient (CLI) | payer MEDICAID, SELFPAY ==
[2018-03-11 13:16] LABS: HCT 42.1 % (40.0-50.0); HGB 14.3 g/dL (13.5-17.5)
== END 2018-03-11 10:24 ==
PROVIDERS: PCP Internal Medicine; Visit Provider Internal Medicine
DX: E11.9 Type 2 diabetes mellitus without complications (principal)
CPT/HCPCS: 36415; 85014; 85018

== ENCOUNTER 2018-08-13 11:00 | Outpatient (CLI) | payer MEDICAID, SELFPAY ==
[2018-08-13 12:42] LABS: HCT 43.7 % (40.0-50.0)
[2018-08-13 13:25] LABS: Cholesterol 259 mg/dL (50-200); HDL Cholesterol 38 mg/dL (40-60); LDL CHOLESTEROL 164 mg/dL (<100); TSH (W/Ref FT4) 1.83 uIU/mL (0.358-3.74); Triglyceride 196 mg/dL (30-150)
== END 2018-08-13 11:20 ==
PROVIDERS: PCP Internal Medicine; Visit Provider Internal Medicine
DX: E11.9 Type 2 diabetes mellitus without complications (principal)
CPT/HCPCS: 36415; 80061; 83721; 83036; 84443; 85014; 85018

== ENCOUNTER 2018-09-30 09:33 | Outpatient (CLI) | payer MEDICAID, SELFPAY ==
[2018-09-30 11:22] LABS: Hemoglobin A1C 8.9 % (4.5-6.2)
== END 2018-09-30 09:53 ==
PROVIDERS: PCP Internal Medicine; Visit Provider Internal Medicine
DX: E11.9 Type 2 diabetes mellitus without complications (principal)
CPT/HCPCS: 36415; 83036

== ENCOUNTER 2019-04-05 08:53 | Outpatient (CLI) | payer MEDICAID, SELFPAY ==
[2019-04-05 11:41] LABS: Hemoglobin A1C 9.4 % (4.5-6.2)
[2019-04-05 11:53] LABS: Calculated LDL 146 mg/dL; Cholesterol 213 mg/dL (<200); HDL Cholesterol 31 mg/dL (40-60); Triglyceride 181 mg/dL (<150)
== END 2019-04-05 09:13 ==
PROVIDERS: PCP Internal Medicine; Visit Provider Internal Medicine
DX: E11.9 Type 2 diabetes mellitus without complications (principal)
CPT/HCPCS: 36415; 80061; 83036

== ENCOUNTER 2019-10-19 13:33 | Outpatient (REF) | payer MEDICAID, SELFPAY ==
[2019-10-19 17:18] LABS: CREATININE 1.09 mg/dL (0.70-1.30)
[2019-10-19 17:22] LABS: Calculated LDL 141 mg/dL (<100); Cholesterol 236 mg/dL (<200); HDL Cholesterol 34 mg/dL (40-60); Triglyceride 307 mg/dL (<150)
[2019-10-19 17:28] LABS: Hemoglobin A1C 10.3 % (3.8-5.6)
== END 2019-10-19 13:53 ==
LOC: LBN 13:33
PROVIDERS: PCP Nurse Practitioner; Visit Provider Internal Medicine
DX: E11.9 Type 2 diabetes mellitus without complications; E78.5 Hyperlipidemia, unspecified
CPT/HCPCS: 80061; 82565; 83036

== ENCOUNTER 2020-05-10 04:31 | Outpatient (CLI) | payer MEDICAID, SELFPAY ==
[2020-05-10 12:47] LABS: Hemoglobin A1C 8.8 % (<5.7)
[2020-05-10 12:54] LABS: COMMENT (LAB VIEW ONLY) 293.37 mg/dL; Microalb ug/mg Crea 15.6 ug/mg Cr
[2020-05-10 13:01] LABS: Calculated LDL 52 mg/dL (<100); Cholesterol 116 mg/dL (<200); HDL Cholesterol 38 mg/dL (40-60); Triglyceride 133 mg/dL (<150)
== END 2020-05-10 04:51 ==
PROVIDERS: PCP Nurse Practitioner; Visit Provider Nurse Practitioner
DX: E11.9 Type 2 diabetes mellitus without complications (principal); E78.5 Hyperlipidemia, unspecified
CPT/HCPCS: 36415; 80061; 82043; 82570; 83036

== ENCOUNTER 2020-07-26 02:45 | Outpatient (CLI) | payer MEDICAID, SELFPAY ==
[2020-07-26 11:05] LABS: Source Nasal/Nares
[2020-07-26 14:53] LABS: COVID-19 PCR Negative (Negative)
== END 2020-07-26 02:46 | disposition home or self-care (01) ==
LOC: LBO 02:45
PROVIDERS: PCP Nurse Practitioner; Visit Provider Surgery
DX: Z20.822 Contact with and (suspected) exposure to COVID-19 (principal); Z01.818 Encounter for other preprocedural examination
CPT/HCPCS: 87635

== ENCOUNTER 2020-07-28 07:13 | Day surgery (SDC) | payer MEDICAID, SELFPAY ==
[2020-07-28 07:15] VITALS: BP 133/84; PULSE 79; RESP 16; TEMP 36.1; O2SAT 96
[2020-07-28] MEDS: Lactated Ringers 1,000 ML 80 ML IV (07:39)
--- NOTE | 2020-07-28 09:18 | W.COLOREPORT ---
Date of service: 07/28/20 Time of Service: 09:18 Colonoscopy Report Date of procedure: 07/28/20 Pre-op diagnosis general: A polyp/family hx Post-op diagnosis procedure note: same Surgeon: Abi Bhagat Anesthesia Type: General:No Airway Estimated blood loss (mL): 0 Pathology: none sent Complications: None Disposition: same day Procedure Description: After informed consent was obtained the patient was taken to the procedure room and placed in a left decubitous position. Monitors were applied and a time out was done. The patients name, date of , procedure, allergies to medications and metal in their body was reviewed. The patient was then sedated. Once sedated and comfortable a rectal exam was done. External exam was normal. Internal exam revealed a normal sphincter tone and no palpable masses. The scope was then introduced and retrofelexed. No internal hemorrhoids were identified. The scope was then advanced to the cecum w/ difficulty. The TI and appendiceal orifice were identified. The prep was good. The scope was then slowly retracted over 10 minutes back into the rectum. There were no polyps, AVMs, or diverticula visualized today. The mucosa is pink and healthy. The scope was removed and the patient was woken up and taken back to Same day surgery in stable condition. The patient tolerated the procedure well and there were no immediate complications. Follow up: The patient should follow up in 5 years unless they develop changes in bowel habits or other new gastrointestinal complaints.
[2020-07-28 09:50] VITALS: BP 132/83; PULSE 68; RESP 18; TEMP 36; O2SAT 98
--- NOTE | 2020-07-28 10:16 | DSE_ITS ---
Date of service: 07/28/20 Time of Service: 10:16 Discharge Plan Discharge Details Attending Provider: Abi Bhagat Primary Care Provider: Leeann Ho Home Meds and New Rx's Prescriptions: No Action (DME) blood-glucose meter kit See Dose Instructions .ROUTE .MEDSUPPLY Qty: 1 RF: 0 epinephrine 0.3 mg/0.3 mL auto-injector 0.3 mg IM ONCE Qty: 1 RF: 1 aspirin [Aspirin Childrens] 81 mg tablet,chewable 81 mg PO DAILY Qty: 90 RF: 6 hydroxyzine HCl 25 mg tablet 25 mg PO QHS PRN (Reason: itching) Qty: 30 RF: 3 atorvastatin 40 mg tablet 40 mg PO DAILY Qty: 90 RF: 3 polyethylene glycol 3350 17 gram/dose powder 238 g PO ONCE Qty: 238 RF: 0 bisacodyl [Dulcolax (bisacodyl)] 5 mg tablet,delayed release (DR/EC) 5 mg PO ONCE Qty: 4 RF: 0 (DME) OneTouch Ultra Blue Test Strip strip See Dose Instructions .ROUTE .MEDSUPPLY Qty: 100 RF: 12 (DME) lancets [Easy Touch Safety Lancets] 26 gauge misc See Dose Instructions .ROUTE .MEDSUPPLY Qty: 100 RF: 6 clotrimazole [Lotrimin AF (clotrimazole)] 1 % cream 1 applic topical BID Qty: 28 RF: 0 glyburide 2.5 mg tablet 2.5 mg PO BID Qty: 90 RF: 3 ibuprofen 800 mg tablet 800 mg PO TID Qty: 30 RF: 0 methocarbamol 500 mg tablet 500 mg PO TID Qty: 90 RF: 0 sildenafil (pulm.hypertension) 20 mg tablet 20 mg PO PRN Qty: 20 RF: 8 metformin 1,000 mg tablet 1,000 mg PO BID Qty: 180 RF: 3 acetaminophen [Mapap Extra Strength] 500 mg Tablet 1,000 mg PO Q6H PRN PRN (Reason: pain) Qty: 30 RF: 0 ibuprofen 600 mg tablet 600 mg PO QID PRN (Reason: pain) Qty: 30 RF: 1 nystatin 100,000 unit/gram cream 1 applic topical BID PRNRF: 0 DS: Data Vitals/I&O Vitals and I&O: Vital Signs Temperature 36.1 C L 07/28/20 07:15 Pulse 79 07/28/20 07:15 Pulse Rhythm Regular 07/28/20 07:15 Respiratory Rate 16 07/28/20 07:15 Respiratory Depth Normal 07/28/20 07:15 Blood Pressure 133/84 07/28/20 07:15 Pulse Oximetry 96 07/28/20 07:15 Oxygen Delivery Method Room Air 07/28/20 07:15 Oxygen Flow Rate 0 07/28/20 07:15 Intake & Output 07/27/20 07/27/20 07/28/20 11:59 23:59 11:59 Intake Total 300 / 300 Balance 300 / 300 Weight 123.3 kg Intake: IV 300 / 300 PFSH Medical History (Updated 07/28/20 @ 07:20 by Dot Garcia) Diabetes mellitus Family history of colon cancer (02/17/14) Family history of diabetes mellitus (02/17/14) Obesity Tubular adenoma of colon (06/14/16) Surgical History Colonoscopy - IV Sedation (06/14/16) H/O thumb surgery Family History (Updated 10/20/19 @ 10:34 by Cynthia Prince) Mother , 60's Diabetes Heart disease Hyperlipidemia Father , 65 Neoplasm RECTAL Grandfather Heart disease Grandfather Heart disease Neoplasm LUNG Grandmother Heart disease Other Family history of colon cancer Family history of diabetes mellitus Social History (Updated 10/20/19 @ 10:32 by Cynthia Prince) Smoking/Tobacco Use Status: Never Smoking risk assessment performed?: Yes Alcohol Intake: current Alcohol Intake frequency: a few times a week Drug use: Never Substance use type: does not use Caregiver/Support person: No Household members: spouse and other Details: 3 Housing: house 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 Pets and animals: No Sexually active: Yes Do you think of yourself as: straight/heterosexual What is your relationship status?: How often do you talk on the phone with friends or family?: three or more times per week How often do you get together with friends or relatives?: twice per week How often do you attend druze or confucianist services?: 1-3 times per year Do you belong to any clubs or organized social groups?: no Panel score (0-1 are the most socially isolated patients): 2 Duration: 15-30 minutes/day Frequency: 1-2 times per week Fariha/Pentecostalism: Gnosticism Special fariha needs: No Seatbelt use: always Do you feel safe at home: Yes Do you feel safe in your relationship?: Yes
--- NOTE | 2020-07-28 10:16 | W.PM.DSUDISC ---
Discharge Plan Disposition Patient Disposition: HOME Condition: Good Discharge Details Reason For Visit: colon scope Attending Provider: Abi Bhagat Primary Care Provider: Leeann Ho Home Meds and New Rx's Prescriptions: Continued (DME) blood-glucose meter kit See Dose Instructions .ROUTE .MEDSUPPLY Qty: 1 RF: 0 epinephrine 0.3 mg/0.3 mL auto-injector 0.3 mg IM ONCE Qty: 1 RF: 1 aspirin [Aspirin Childrens] 81 mg tablet,chewable 81 mg PO DAILY Qty: 90 RF: 6 hydroxyzine HCl 25 mg tablet 25 mg PO QHS PRN (Reason: itching) Qty: 30 RF: 3 atorvastatin 40 mg tablet 40 mg PO DAILY Qty: 90 RF: 3 (DME) OneTouch Ultra Blue Test Strip strip See Dose Instructions .ROUTE .MEDSUPPLY Qty: 100 RF: 12 (DME) lancets [Easy Touch Safety Lancets] 26 gauge misc See Dose Instructions .ROUTE .MEDSUPPLY Qty: 100 RF: 6 clotrimazole [Lotrimin AF (clotrimazole)] 1 % cream 1 applic topical BID Qty: 28 RF: 0 glyburide 2.5 mg tablet 2.5 mg PO BID Qty: 90 RF: 3 ibuprofen 800 mg tablet 800 mg PO TID Qty: 30 RF: 0 methocarbamol 500 mg tablet 500 mg PO TID Qty: 90 RF: 0 sildenafil (pulm.hypertension) 20 mg tablet 20 mg PO PRN Qty: 20 RF: 8 metformin 1,000 mg tablet 1,000 mg PO BID Qty: 180 RF: 3 acetaminophen [Mapap Extra Strength] 500 mg Tablet 1,000 mg PO Q6H PRN PRN (Reason: pain) Qty: 30 RF: 0 ibuprofen 600 mg tablet 600 mg PO QID PRN (Reason: pain) Qty: 30 RF: 1 nystatin 100,000 unit/gram cream 1 applic topical BID PRNRF: 0 Discontinued polyethylene glycol 3350 17 gram/dose powder 238 g PO ONCE Qty: 238 RF: 0 bisacodyl [Dulcolax (bisacodyl)] 5 mg tablet,delayed release (DR/EC) 5 mg PO ONCE Qty: 4 RF: 0 Discharge Instructions Additional Instructions: Findings: normal Follow up: repeat in 5 yrs time Please call if you develop: fevers >101.5 Nausea or Vomiting Abdominal pain that is not transient DAY SURGERY UNIT POST COLONOSCOPY INSTRUCTIONS 1. Because there will be medication in your system for the next 24 hours, you may feel a little sleepy. Your coordination will be affected. Therefore: a. Do not drive or operate dangerous equipment for 24 hours. b. Do not drink alcohol beverages for 24 hours (not even beer). c. Plan to go home and rest for the day. 2. Generally there are no restrictions on your activity after a day or so has gone by, but you may feel a bit fatigued for a few days. 3 After you arrive home you may have a light meal and return to a normal diet as you can tolerate it without feeling sick to your stomach. 4. After surgery, you may feel pain or discomfort. This should be only transient, but if it persists please contact your doctor. 5. If there are any questions regarding the findings of your procedure, please feel free to contact your doctor. 6. If you are unable to contact your doctor with a problem, contact the hospital at [phone]. 7. Continue all your regular medications unless directed otherwise. I understand the above instructions and have no questions. Signature of Patient or Responsible Adult Escort Date/Time Name of Responsible Adult Escort Signature of Nurse Date/Time Activity:: No lifting over 20 pounds or strenuous activity x24 hours. Diet:: Small light meals x24 hours. Weakness small light meals x24 hours. Discharge Orders Discharge Orders: Discharge Order (Routine); Ordered 07/28/20 Ordered By: Abi Bhagat DS: Diagnosis Discharge Diagnosis (1) Tubular adenoma of colon: Status: Acute (2) Family history of colon cancer: Status: Acute
== END 2020-07-28 10:30 | disposition home or self-care (01) ==
PROVIDERS: PCP Nurse Practitioner; Visit Provider Surgery
PROC: 0DJD8ZZ Inspection of Lower Intestinal Tract, Via Natural or Artificial Opening Endoscopic (ICD-10-PCS; CPT 45378; principal; 2020-07-28 08:30)
DX: Z12.11 Encounter for screening for malignant neoplasm of colon (principal); Z80.0 Family history of malignant neoplasm of digestive organs; Z86.010 Personal history of colon polyps
CPT/HCPCS: 45378; J2001

== ENCOUNTER 2021-06-01 17:55 | Outpatient (REF) | payer MEDICAID, SELFPAY ==
[2021-06-01 16:22] LABS: COMMENT (LAB VIEW ONLY) 317.13 mg/dL; Microalb ug/mg Crea 11.3 ug/mg Cr
== END 2021-06-01 17:56 | disposition home or self-care (01) ==
LOC: LBN 17:55
PROVIDERS: PCP Nurse Practitioner; Visit Provider Nurse Practitioner
DX: E11.9 Type 2 diabetes mellitus without complications (principal)
CPT/HCPCS: 82043; 82570

== ENCOUNTER 2022-01-17 03:55 | Outpatient (CLI) | payer MEDICAID, SELFPAY ==
[2022-01-17 13:35] LABS: Anion Gap 10.3 mmol/L (3-11); BUN 16 mg/dL (7-18); CO2 28.7 mmol/L (21.0-32.0); Calcium 8.8 mg/dL (8.5-10.1); Calculated LDL 79 mg/dL (<100); Chloride 102 mmol/L (98-107); Cholesterol 150 mg/dL (<200); Estimated GFR 88.33 (mL/min/1.73m2); Glucose 120 mg/dL (74-106); HDL Cholesterol 40 mg/dL (40-60); Potassium 3.8 mmol/L (3.5-5.1); Sodium 141 mmol/L (136-145); Triglyceride 157 mg/dL (<150)
[2022-01-17 14:21] LABS: Hemoglobin A1C 8.6 % (<5.7)
[2022-01-17 22:51] LABS: Albumin ug/mg Crea 19 (<30); Albumin, Ur 7.6 mg/dL (See Note); Creatinine, Ur 398.9 mg/dL (See Note)
== END 2022-01-17 03:56 | disposition home or self-care (01) ==
LOC: LOS 03:56
PROVIDERS: PCP Nurse Practitioner; Visit Provider Nurse Practitioner
DX: E11.9 Type 2 diabetes mellitus without complications (principal); R03.0 Elevated blood-pressure reading, without diagnosis of hypertension; E78.2 Mixed hyperlipidemia
CPT/HCPCS: 36415; 80048; 80061; 82043; 82570; 83036

== ENCOUNTER 2022-10-24 09:12 | Outpatient (CLI) | payer MEDICAID, SELFPAY ==
[2022-10-24 11:11] LABS: HCT 45.3 % (40.0-50.0); HGB 15.1 g/dL (13.5-17.5); MCH 31.3 pg (27.0-33.0); MCHC 33.3 % (32.0-36.0); MCV 94 fL (80-95); MPV 9.6 fL (8.0-11.0); Platelet Count 177 10^3/uL (130-400); RBC 4.82 10^6/uL (4.36-5.78); RDW-SD 41.8 fL; WBC 5.26 10^3/uL (4.4-10.8)
[2022-10-24 11:35] LABS: Anion Gap 11.9 mmol/L (3-11); BUN 13 mg/dL (7-18); CO2 24.1 mmol/L (21.0-32.0); Calcium 8.7 mg/dL (8.5-10.1); Calculated LDL 57 mg/dL (<100); Chloride 105 mmol/L (98-107); Cholesterol 124 mg/dL (<200); Estimated GFR 87.78 (mL/min/1.73m2); Glucose 185 mg/dL (74-106); HDL Cholesterol 37 mg/dL (40-60); Potassium 4.1 mmol/L (3.5-5.1); Sodium 141 mmol/L (136-145); Triglyceride 150 mg/dL (<150)
== END 2022-10-24 09:13 | disposition home or self-care (01) ==
LOC: LOS 09:12
PROVIDERS: PCP Nurse Practitioner Family; Referring Provider Nurse Practitioner Family; Visit Provider Nurse Practitioner Family
DX: E11.9 Type 2 diabetes mellitus without complications (principal); E66.9 Obesity, unspecified; E78.5 Hyperlipidemia, unspecified; N52.9 Male erectile dysfunction, unspecified; R03.0 Elevated blood-pressure reading, without diagnosis of hypertension; Z00.00 Encounter for general adult medical examination without abnormal findings
CPT/HCPCS: 36415; 80048; 80061; 85027

== ENCOUNTER 2023-01-23 16:44 | Outpatient (REF) | payer MEDICAID, SELFPAY ==
[2023-01-23 18:11] LABS: Microalb ug/mg Crea 10.7 ug/mg Cr
== END 2023-01-23 16:45 | disposition home or self-care (01) ==
LOC: LBN 16:44
PROVIDERS: PCP Nurse Practitioner Family; Visit Provider Nurse Practitioner Family
DX: E11.9 Type 2 diabetes mellitus without complications (principal)
CPT/HCPCS: 82043; 82570

== ENCOUNTER 2023-11-04 04:44 | Outpatient (CLI) | payer MEDICAID, SELFPAY ==
[2023-11-04 12:31] LABS: Hemoglobin A1C 9.1 % (<5.7)
[2023-11-04 12:34] LABS: Anion Gap 12.5 mmol/L (3-11); BUN 17 mg/dL (7-18); CO2 24.5 mmol/L (21.0-32.0); Calcium 8.8 mg/dL (8.5-10.1); Calculated LDL 75 mg/dL (<100); Chloride 105 mmol/L (98-107); Cholesterol 145 mg/dL (<200); Estimated GFR 87.24 (mL/min/1.73m2); Glucose 157 mg/dL (74-106); HDL Cholesterol 40 mg/dL (40-60); Potassium 3.8 mmol/L (3.5-5.1); Sodium 142 mmol/L (136-145); Triglyceride 152 mg/dL (<150)
== END 2023-11-04 04:45 | disposition home or self-care (01) ==
LOC: LOS 04:44
PROVIDERS: PCP Nurse Practitioner Family; Visit Provider Nurse Practitioner Family
DX: Z00.00 Encounter for general adult medical examination without abnormal findings (principal); R03.0 Elevated blood-pressure reading, without diagnosis of hypertension; E78.2 Mixed hyperlipidemia; E11.9 Type 2 diabetes mellitus without complications
CPT/HCPCS: 36415; 80048; 80061; 83036